=== PATIENT | male | born 1955 | race Caucasian/White ===

== ENCOUNTER 2022-10-06 15:47 | Emergency (ER) | payer MEDICARE ==
--- NOTE | 2022-10-06 16:39 | ERPHSYRPT ---
- History of Present Illness Time Seen by Provider: 10/06/22 16:39 Source: patient Exam Limitations: no limitations Patient Subjective Stated Complaint: Pt was at Dr. Valerie Barone's office and she sent him to the ER due to low blood pressure Triage Nursing Assessment: Pt was brought to the ER by a friend, hyptotensive, rates pain in his back as a 9/10 from his shingles, is on 3-3.5L NC at all times, states that he has been in the hospital twice this past month due to CHF, pulses normal, edema in forearms, skin sallow/cool/dry, doesn't appear to be in any distress Physician History: Patient is a 66-year-old male presents to our ED as a referral from his primary care doctor for low blood pressure. Patient otherwise feels well. Patient is currently experiencing a shingles outbreak. Patient has pain in his back and left flank from the shingles. Patient has a history of COPD and requires 5 L nasal cannula 24 hours/day. Patient also advised has history of CHF. Patient denies any other symptoms. No chest pain. No nausea vomiting or diaphoresis. Symptoms are mild in intensity. No specific worsening improving factors. Patient was at Dr. Barone office for routine follow-up to assess the progress of his shingles. The low blood pressure was found incidentally. Patient does not have any significant symptoms regarding the blood pressure but he did say that his vision seems somewhat more blurry today than normal. He voices no other complaints or concerns at this time. Portions of this note were created with voice recognition technology. There may be grammatical, spelling, punctuation or sound alike errors Timing/Duration: today Severity: mild Modifying Factors: Improves With: nothing Associated Symptoms: other (Slight blurred vision today. No active blurred vision at this time) Allergies/Adverse Reactions: acetaminophen [From Darvocet-N] Allergy (Verified 10/06/22 16:32) propoxyphene [From Darvocet-N] Allergy (Verified 10/06/22 16:32) Home Medications: Albuterol Sulfate [Albuterol Sulfate Hfa] 2 inh PO UD 10/06/22 [History] Aspirin EC 81 mg [Ecotrin 81 mg] 81 mg PO DAILY 10/06/22 [History] Furosemide 20 mg [Lasix 20 mg] 20 mg PO DAILY 10/06/22 [History] Glimepiride [Amaryl] 1 mg PO DAILY 10/06/22 [History] Metoprolol Succinate 25 mg Xl* [Toprol-Xl 25MG Tablets] 25 mg PO DAILY 10/06/22 [History] PANTOPRAZOLE 40 mg Tablet [Protonix 40MG Tablet] 40 mg PO QAM 10/06/22 [History] Rivaroxaban [Xarelto] 20 mg PO DAILY 10/06/22 [History] Hx Influenza Vaccination/Date Given: No Hx Pneumococcal Vaccination/Date Given: No Travel Risk - International Travel Have you traveled outside of the country in past 3 weeks: No - Coronavirus Screening Are you exhibiting any of the following symptoms?: No Close contact with a COVID-19 positive Pt in past 14-21 Days: No - Vaccine Status Have you recieved a Covid-19 vaccination: Yes 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[employer] - Vaccination Dates Date of 2cond Vaccination (if applicable): 2020 - Review of Systems Constitutional: No Symptoms, No Fever, No Chills Eyes: No Symptoms Ears, Nose, & Throat: No Symptoms Respiratory: No Symptoms, No Cough, No Dyspnea Cardiac: No Symptoms, No Chest Pain, No Edema, No Syncope Abdominal/Gastrointestinal: No Symptoms, No Abdominal Pain, No Nausea, No Vomiting, No Diarrhea Genitourinary Symptoms: No Symptoms, No Dysuria Musculoskeletal: No Symptoms, No Back Pain, No Neck Pain Skin: No Symptoms, No Rash Neurological: No Symptoms, No Dizziness, No Focal Weakness, No Sensory Changes Psychological: No Symptoms Endocrine: No Symptoms Hematologic/Lymphatic: No Symptoms Immunological/Allergic: No Symptoms All Other Systems: Reviewed and Negative - Past Medical History Neurological History: No Pertinent History Cardiac History: Angina, High Cholesterol, Hypertension, Myocardial Infarction ([place]) Respiratory History: Asthma, Bronchitis, COPD, Emphysema, Pneumonia, Sleep Apnea Endocrine Medical History: Diabetes Type II Musculoskeletal History: Arthritis Other Medical History: See attached meds list. - Past Surgical History Past Surgical History: Yes Cardiac: Cardiac Stent Other Surgical History: eye implants - Social History Smoking Status: Former smoker Exposure to second hand smoke: No Drug Use: none Patient Lives Alone: No - Nursing Vital Signs Nursing Vital Signs: Initial Vital Signs Temperature 98.3 F 10/06/22 16:14 Pulse Rate 99 H 10/06/22 16:14 Respiratory Rate 19 10/06/22 16:14 Blood Pressure 89/73 10/06/22 16:14 O2 Sat by Pulse Oximetry 94 L 10/06/22 16:14 Pain Scale Pain Intensity 0 - Physical Exam General Appearance: no apparent distress, alert Eye Exam: PERRL/EOMI, eyes nml inspection Ears, Nose, Throat Exam: normal ENT inspection, TMs normal, pharynx normal, moist mucous membranes Neck Exam: normal inspection, non-tender, supple, full range of motion Respiratory Exam: normal breath sounds, lungs clear, airway intact, No respiratory distress Cardiovascular Exam: regular rate/rhythm, normal heart sounds, normal peripheral pulses Gastrointestinal/Abdomen Exam: soft, normal bowel sounds, No tenderness, No mass Back Exam: normal inspection, normal range of motion, No CVA tenderness, No vertebral tenderness Extremity Exam: normal inspection, normal range of motion, pelvis stable Neurologic Exam: alert, oriented x 3, cooperative, normal mood/affect, nml cerebellar function, nml station & gait, sensation nml, No motor deficits Skin Exam: normal color, warm, dry, No rash Lymphatic Exam: No adenopathy SpO2 Interpretation: normal SpO2: 94 O2 Delivery: Room Air - Course Nursing assessment & vital signs reviewed: Yes EKG Interpreted by Me: RATE (Atrial fibrillation. Patient is chronically in atrial fibrillation. 95), A-fib, NORMAL AXIS, NORMAL INTERVALS, Other (Patient currently on Xarelto for atrial fibrillation.) - Radiology Exams Chest X-ray Interpretation: Teleradiologist Report (Probable right lung infiltrate versus atelectasis) Ordered Tests: Active Orders 24 hr Category Date Time Status AMA [Release AMA] OM.NOW Care 10/06/22 22:01 Ordered Chief Of Anesthesiology STAT Care 10/06/22 16:57 Active EKG-ER Only STAT Care 10/06/22 16:56 Active IV Insertion STAT Care 10/06/22 16:56 Active Pulse Oximetry (ED) STAT Care 10/06/22 16:56 Active CHEST 1 VIEW (PORTABLE) Stat Exams 10/06/22 16:57 Completed CBC W DIFF Stat Lab 10/06/22 16:56 Completed CMP Stat Lab 10/06/22 16:55 Completed NT PRO BNPII Stat Lab 10/06/22 16:55 Completed TROPONIN Q4H Lab 10/06/22 16:55 Completed TROPONIN Q4H Lab 10/06/22 20:27 Completed TROPONIN Q4H Lab 10/07/22 01:00 Ordered Medication Summary Generic Name Dose Route Start Last Admin Trade Name Lisseth PRN Reason Stop Dose Admin Sodium Chloride 1,000 mls @ 100 mls/hr 10/06/22 17:00 10/06/22 17:45 Sodium Chloride 0.9% 1000 Ml IV 11/05/22 16:59 100 mls/hr .Q10H BRONSON Administration Lab/Rad Data: Laboratory Result Diagrams 10/06/22 16:56 10/06/22 16:55 Laboratory Results 10/06/22 10/06/22 10/06/22 Range/Units 20:27 16:56 16:55 WBC 6.5 (4.0-10.5) x10^3/uL RBC 3.42 L (4.1-5.6) x10^6/uL Hgb 11.4 L (12.5-18.0) g/dL Hct 36.1 L (42-50) % MCV 105.6 H (78-100) fL MCH 33.3 H (26-32) pg MCHC 31.6 L (32-36) g/dL RDW 14.2 H (11.5-14.0) % Plt Count 145 L (150-450) x10^3/uL MPV 11.0 (7.5-11.0) fL Gran % 64.5 (36.0-66.0) % Immature Gran % (Auto) 0.5 H (0.00-0.4) % Nucleat RBC Rel Count 0.0 (0.00-0.1) % Eos # (Auto) 0.04 (0-0.5) x10^3/uL Immature Gran # (Auto) 0.03 (0.00-0.03) x10^3u/L Absolute Lymphs (auto) 1.59 (1.0-4.6) x10^3/uL Absolute Monos (auto) 0.60 (0.0-1.3) x10^3/uL Absolute Nucleated RBC 0.00 (0.00-0.01) x10^3u/L Lymphocytes % 24.6 (24.0-44.0) % Monocytes % 9.3 (0.0-12.0) % Eosinophils % 0.6 (0.00-5.0) % Basophils % 0.5 (0.0-0.4) % Absolute Granulocytes 4.17 (1.4-6.9) x10^3/uL Basophils # 0.03 (0-0.4) x10^3/uL Sodium (137-145) mmol/L Potassium (3.5-5.1) mmol/L Chloride (98-107) mmol/L Carbon Dioxide (22-30) mmol/L Anion Gap (5-15) MEQ/L BUN (9-20) mg/dL Creatinine (0.66-1.25) mg/dL Estimated GFR ML/MIN Glucose (74-106) mg/dL Calcium (8.4-10.2) mg/dL Total Bilirubin (0.2-1.3) mg/dL AST (17-59) U/L ALT (0-50) U/L Alkaline Phosphatase (38-126) U/L Troponin I 0.013 0.014 (0.000-0.034) ng/mL NT-Pro-B Natriuret Pep (<300) pg/mL Serum Total Protein (6.3-8.2) g/dL Albumin (3.5-5.0) g/dL 10/06/22 Range/Units 16:55 WBC (4.0-10.5) x10^3/uL RBC (4.1-5.6) x10^6/uL Hgb (12.5-18.0) g/dL Hct (42-50) % MCV (78-100) fL MCH (26-32) pg MCHC (32-36) g/dL RDW (11.5-14.0) % Plt Count (150-450) x10^3/uL MPV (7.5-11.0) fL Gran % (36.0-66.0) % Immature Gran % (Auto) (0.00-0.4) % Nucleat RBC Rel Count (0.00-0.1) % Eos # (Auto) (0-0.5) x10^3/uL Immature Gran # (Auto) (0.00-0.03) x10^3u/L Absolute Lymphs (auto) (1.0-4.6) x10^3/uL Absolute Monos (auto) (0.0-1.3) x10^3/uL Absolute Nucleated RBC (0.00-0.01) x10^3u/L Lymphocytes % (24.0-44.0) % Monocytes % (0.0-12.0) % Eosinophils % (0.00-5.0) % Basophils % (0.0-0.4) % Absolute Granulocytes (1.4-6.9) x10^3/uL Basophils # (0-0.4) x10^3/uL Sodium 134 L (137-145) mmol/L Potassium 4.5 (3.5-5.1) mmol/L Chloride 89 L (98-107) mmol/L Carbon Dioxide 39 H (22-30) mmol/L Anion Gap 11.0 (5-15) MEQ/L BUN 26 H (9-20) mg/dL Creatinine 0.98 (0.66-1.25) mg/dL Estimated GFR > 60.0 ML/MIN Glucose 145 H (74-106) mg/dL Calcium 8.4 (8.4-10.2) mg/dL Total Bilirubin 0.60 (0.2-1.3) mg/dL AST 28 (17-59) U/L ALT 21 (0-50) U/L Alkaline Phosphatase 69 (38-126) U/L Troponin I (0.000-0.034) ng/mL NT-Pro-B Natriuret Pep 5470 (<300) pg/mL Serum Total Protein 6.8 (6.3-8.2) g/dL Albumin 3.5 (3.5-5.0) g/dL - Progress Progress: improved Progress Note: Patient is 66-year-old male presents to our ED for evaluation of hypotension. Patient was referral from his primary care doctor. Upon arrival to our ED patient's blood pressure was in the 90s. Patient states he had some slight blurred vision. However it did cleared up upon arrival. Labs revealed elevated BNP. In light of patient's blood pressure he received IV fluids. Patient's blood pressure responded well. Troponin negative x2. However on exam patient appears to be short of breath. Patient has a history of COPD. We advised evaluation due to tachypnea and shortness of breath. Patient advised of his elevated BNP. Patient states he has not taken his "water pill". In light of patient's physical exam findings and objective fluid overload as observed via elevated BNP we advised hospitalization for shortness of breath and fluid overload. Patient declined. Patient states he wanted to go home. Patient states he would leave AMA. Patient is of sound mind. Patient is appropriate to make informed and independent medical decisions. Patient understands that leaving AGAINST MEDICAL ADVICE can result in delayed diagnosis, increased risk of morbidity, mortality, short and long-term disability including . In spite of these risks, patient has decided to leave AGAINST MEDICAL ADVICE. Patient understands that he may return to our ED at any point if he or she reconsiders. Patient agrees to follow-up with his or her primary care doctor within 48 hours for reevaluation. Patient voices no other complaints or concerns at this time. We will release patient AGAINST MEDICAL ADVICE per their request. 10/06/22 22:02 Testing includes chest x-ray which reveals chronic findings. Atelectasis versus infiltrate. Patient has no fever. No chest pain. CT BC reveals a macrocytic anemia. BMP reveals elevated BUN. Troponin negative x2. Fluids administered to address hypotension. Patient advised admission but declined. AMA form completed. Complexity of problem addressed is moderate, new diagnosis uncertain prognosis. No critical care time Complexity of data reviewed and analyzed is moderate. Test ordered test reviewed and analyzed by Dr. Sadler. Risk of complication and or risk morbidity/mortality of patient management is high. It is my opinion that patient requires hospitalization based on physical exam findings and elevated BNP. Patient declined admission. Patient agrees to follow-up with his primary care doctor within 48 hours for reevaluation. Grandmother bedside. They voiced no other complaints or concerns at this time. Portions of this note were created with voice recognition technology. There may be grammatical, spelling, punctuation or sound alike errors 10/06/22 22:05 Counseled pt/family regarding: lab results, diagnosis, need for follow-up, rad results - Departure Departure Disposition: Home Clinical Impression: Shortness of breath, Elevated brain natriuretic peptide (BNP) level, Hypotension Condition: Stable Critical Care Time: No Referrals: AURE BARONE [Primary Care Provider] - Follow up/PCP as directed Additional Instructions: Discharge/Care Plan RYAN SALGUERO was seen on 10/06/22 in the Emergency Room. The patient was counseled regarding Diagnosis,Lab results, Imaging studies, need for follow up and when to return to the Emergency Room. Prescriptions given: Discharge Note I have spoken with the patient and/or caregivers. I have explained the patient's condition, diagnosis and treatment plan based on the information available to me at this time. I have answered the patient's and/or caregiver's questions and addressed any concerns. The patient and/or caregivers have as good understanding of the patient's diagnosis, condition and treatment plan as can be expected at this point. The vital signs have been stable. The patient's condition is stable and appropriate for discharge from the emergency department. The patient will pursue further outpatient evaluation with the primary care physician or other designated or consulting physician as outlined in the discharge instructions. The patient and/or caregivers are agreeable to this plan of care and follow-up instructions have been explained in detail. The patient and/or caregivers have received these instruction. The patient/and or caregivers are aware that any significant change in condition or worsening of symptoms shou ld prompt an immediate return to this or the closest emergency department or call 911.
[2022-10-06] MEDS ORDERED: Sodium Chloride 0.9% 1000 ML 1,000 ML IV SCH (17:00)
[2022-10-06 17:22] LABS: Absolute Neutrophil Ct (ANC) 4.17 x10^3/uL (1.4-6.9); BASOPHIL % 0.5 % (0.0-0.4); Basophil (Absolute #) 0.03 x10^3/uL (0-0.4); Eosinophil % 0.6 % (0.00-5.0); Eosinophil (Absolute #) 0.04 x10^3/uL (0-0.5); Hematocrit 36.1 % (42-50); Hemoglobin 11.4 g/dL (12.5-18.0); IMMATURE GRAN # 0.03 x10^3u/L (0.00-0.03); IMMATURE GRAN % 0.5 % (0.00-0.4); Lymphocyte (Absolute #) 1.59 x10^3/uL (1.0-4.6); Lymphocytes % 24.6 % (24.0-44.0); Mean Cell Volume 105.6 fL (78-100); Mean Corpuscular Hemoglobin 33.3 pg (26-32); Mean Corpuscular Hgb Concent. 31.6 g/dL (32-36); Monocytes % 9.3 % (0.0-12.0); Neutrophil % 64.5 % (36.0-66.0); Platelet Count 145 x10^3/uL (150-450); Red Blood Count 3.42 x10^6/uL (4.1-5.6); Red Cell Distribution Width 14.2 % (11.5-14.0); White Blood Count 6.5 x10^3/uL (4.0-10.5)
[2022-10-06] MEDS ORDERED: Sodium Chloride 0.9% 1000 ML 1,000 ML ONE (17:44)
[2022-10-06 17:47] LABS: ALBUMIN 3.5 g/dL (3.5-5.0); ALKALINE PHOSPHATASE 69 U/L (38-126); BLOOD UREA NITROGEN 26 mg/dL (9-20); CHLORIDE 89 mmol/L (98-107); Calcium 8.4 mg/dL (8.4-10.2); Carbon Dioxide 39 mmol/L (22-30); Creatinine 1 0.98 mg/dL (0.66-1.25); EST GLOMERULAR FILTRATION RATE > 60.0 ML/MIN; Glucose 145 mg/dL (74-106); NT PRO BNPII 5470 pg/mL (<300); Potassium 4.5 mmol/L (3.5-5.1); SGOT/AST 28 U/L (17-59); SGPT/ALT 21 U/L (0-50); SODIUM 134 mmol/L (137-145); Total Protein 6.8 g/dL (6.3-8.2)
--- NOTE | 2022-10-06 18:10 | XRAY ---
CLINICAL HISTORY:Hypotension; COMPARISON:None; TECHNIQUES:X-ray of the chest, PA view; FINDINGS: There is a mild increase in density in the right lower field, probably corresponding to mild infiltrate versus partial atelectasis. The mediastinum is mildly enlarged. The alayna are normal in size and position. The cardiac size is normal. Atheromatous calcifications in the aorta. The tracheal lucency is centrally placed. The costophrenic and cardiophrenic angles are clear. Unremarkable thoracic bony cage with no definite fractures detected. IMPRESSION: Probable right lung infiltrate versus partial atelectasis. Further evaluation with CT is recommended. Electronically Signed by: Letty Perez MD. ( 10/06/2022 17:05:50 [employer] FIRST OFFICER;)
[2022-10-06 20:15] VITALS: O2SAT 94
[2022-10-06 22:21] VITALS: BP 134/78; PULSE 81
== END 2022-10-06 22:11 | disposition left against medical advice (07) ==
LOC: ED 15:47
DX: I95.9 Hypotension, unspecified (principal); R06.02 Shortness of breath; R79.89 Other specified abnormal findings of blood chemistry; J44.9 Chronic obstructive pulmonary disease, unspecified; E78.5 Hyperlipidemia, unspecified; I11.0 Hypertensive heart disease with heart failure; I50.9 Heart failure, unspecified; E11.9 Type 2 diabetes mellitus without complications; Z79.01 Long term (current) use of anticoagulants; Z79.899 Other long term (current) drug therapy; Z79.84 Long term (current) use of oral hypoglycemic drugs; Z99.81 Dependence on supplemental oxygen
CPT/HCPCS: 36415; 71045; 80053; 83880; 84484; 85025; 93005; 93041; 94760; 96360; 99284